=== PATIENT | female | born 1970 | race Caucasian/White ===

== ENCOUNTER 2019-12-30 21:47 | Emergency (ER) | payer OTHER ==
[2019-12-30] MEDS ORDERED: Nitroglycerin 0.4 MG TAB 1 EACH ONE (22:49)
[2019-12-30] MEDS ORDERED: Aspirin Chewable 81 MG TAB ONE ×2 (22:49)
--- NOTE | 2019-12-30 22:49 | RAD ---
XR Chest 1 View Portable History: Chest pain Comparison: None. Findings: Lungs are clear. No pneumothorax. No effusion. Heart size upper limits of normal. No acute osseous abnormality. Impression: No acute intrathoracic abnormality.
[2019-12-30] MEDS ORDERED: Ondansetron PF 4 MG/2 ML Vial ONE ×2 (22:51)
[2019-12-30 23:07] LABS: #Basophils 0.1 thou/uL (0.0-0.2); #Eosinphils 0.1 thou/uL (0.0-0.7); #Lymphocytes 1.9 thou/uL (1.20-3.40); #Monocytes 0.4 thou/uL (0.11-0.59); #Neutrophils 10.5 thou/uL (1.40-6.50); %Basophils 0.6 % (0.0-1.0); %Eosinophils 0.7 % (0.0-10.0); %Lymphocytes 14.5 % (21.0-51.0); %Neutrophils 81.2 % (42.0-75.0); Hemoglobin 13.5 g/dL (12.0-16.0); Mean Corpuscular Hemoglobin 25.5 pg (27.0-31.0); Mean Corpuscular Volume 82.5 fL (78.0-98.0); Mean Platelet Volume 8.8 fL (7.4-10.4); Platelet Count 283 thou/uL (130-400); RBC Distribution Width 13.3 % (11.5-14.5); Red Blood Cell (RBC) Count 5.29 mill/uL (4.20-5.40)
[2019-12-30 23:12] LABS: ALT (SGPT) 39 U/L (8-55); AST (SGOT) 28 U/L (5-34); Albumin 4.1 g/dL (3.5-5.0); Alkaline Phosphatase 56 U/L (40-110); Anion Gap 17 mmol/L (10-20); BUN (Urea Nitrogen) 11 mg/dL (7.0-18.7); Bilirubin, Total 0.7 mg/dL (0.2-1.2); CK (CPK) 40 U/L (29-168); Calc. Creatinine Clearance 0 mL/min (70-130); Calcium 9.3 mg/dL (7.8-10.44); Carbon Dioxide 27 mmol/L (22-29); Chloride 99 mmol/L (98-107); Estimated GFR-MDRD 69; Globulin 3.5 g/dL (2.4-3.5); Glucose 190 mg/dL (70-105); Potassium 3.4 mmol/L (3.5-5.1); Protein, Total 7.6 g/dL (6.0-8.3); Sodium 140 mmol/L (136-145)
[2019-12-30 23:13] LABS: CKMB 0.5 ng/mL (0-6.6)
[2019-12-30] MEDS ORDERED: hydrOXYzine 25 MG TAB ONE ×2 (23:54)
== END 2019-12-31 00:05 | disposition home or self-care (01) ==
LOC: MADERS 21:47
DX: I10 Essential (primary) hypertension (principal); R11.0 Nausea; E11.9 Type 2 diabetes mellitus without complications; E03.9 Hypothyroidism, unspecified
CPT/HCPCS: 36415; 71045; 80053; 82550; 82553; 83880; 84484; 85025; 93005; 96374; J2405